=== PATIENT | male | born 1955 | race Caucasian/White ===

== ENCOUNTER 2019-02-11 10:41 | Emergency (ER) | payer OTHER ==
[2019-02-11] MEDS ORDERED: LET GEL TOPICAL 1 EA SYR TP ONE (11:02)
--- NOTE | 2019-02-11 11:02 | EDPHY ---
H & P Stated Complaint: epistaxis Time Seen by Provider: 02/11/19 11:02 HPI/ROS: HPI: This is a 63-year-old male who presents with Chief Complaint: Left nostril nose bleed Location: Left nostril Quality: Nose bleed Duration: 1-2 hours Signs and Symptoms: no fever, no nausea, no vomiting, no photophobia, no noise sensitivity, no neck stiffness, no ear pain, no tinnitus, no nasal congestion, no sinus pressure, no weakness, no radiation, no aura, + nasal dryness, no trauma Timing: Acute, constant Severity: Moderate Context: Patient presents with sudden onset of left nostril bleeding this morning after he blew his nose. He reports that he is unable to stop the bleeding with direct pressure. He does not take any blood thinners. He does have a history of nasal dryness and uses saline nasal wash and humidifier and his house. Mathew patient. Modifying Factors: Direct Pressure-no relief Comment: ROS: A comprehensive 10 system review of systems is otherwise negative aside from elements mentioned in the history of present illness. MEDICAL/SURGICAL/SOCIAL HISTORY: Medical history: Generally healthy. Does not take any regular medications. Surgical history: Denies Social history: Never smoked. Family history noncontributory. CONSTITUTIONAL: Well-developed, well-nourished, mild distress, adult white male , awake and alert HEENT: Atraumatic and normocephalic, PERRL, EOMI. Nares patent; no rhinorrhea; left nostril at the 3 o'clock position shows anterior small pinpoint epistaxis. no nasal mucosal edema. Tympanic membranes clear. Oropharynx clear, no exudate and moist pink mucosa. Airway patent. No lymphadenopathy. No meningismus. Cardiovascular: Normal S1/S2, regular rate, regular rhythm, without murmur rub or gallop. PULMONARY/CHEST: Symmetrical and nontender. Clear to auscultation bilaterally. Good air movement. No accessory muscle usage. ABDOMEN: Soft, nondistended, nontender, no rebound, no guarding, no peritoneal signs, no masses or organomegaly. No CVAT. EXTREMITIES: 2/2 pulses, strength 5/5, no deformities, no clubbing, no cyanosis or edema. NEUROLOGICAL: no focal neuro deficits. GCS 15. SKIN: Warm and dry, no erythema. no rash. Good capillary refill. Source: Patient Exam Limitations: No limitations - Personal History Current Tetanus/Diphtheria Vaccine: Yes Current Tetanus Diphtheria and Acellular Pertussis (TDAP): Yes - Medical/Surgical History Hx Asthma: No Hx Chronic Respiratory Disease: No Hx Diabetes: No Hx Cardiac Disease: No Hx Renal Disease: No Hx Cirrhosis: No Hx Alcoholism: No Hx HIV/AIDS: No Hx Splenectomy or Spleen Trauma: No Other PMH: denies - Social History Smoking Status: Never smoked Constitutional: Initial Vital Signs Temperature (C) 36.5 C 02/11/19 10:45 Heart Rate 63 02/11/19 10:45 Respiratory Rate 16 02/11/19 10:45 Blood Pressure 140/69 H 02/11/19 10:45 O2 Sat (%) 98 02/11/19 10:45 O2 Delivery Mode Room Air Allergies/Adverse Reactions: No Known Allergies Allergy (Unverified 02/11/19 10:45) Home Medications: Medication Instructions Recorded NK [No Known Home Meds] 02/11/19 Medical Decision Making Procedures: Procedure: Epistaxis control. After verbal consent was obtained, the patient was anesthetized with let topical. The left anterior epistaxis was identified. The patient was treated with Afrin and rhino rocket size 4.5 cm with balloon inflated to 5 mL. Following the procedure the patient was re-examined and the bleeding was well controlled. The patient tolerated the procedure well. The procedure was performed by myself. ED Course/Re-evaluation: Vital signs reviewed and show mildly elevated blood pressure. Left anterior epistaxis identified; let topical and Afrin applied. Rhino rocket 4.5 inserted with inflation of balloon to 4 mL with cessation of bleeding Monitored for 1 hr without resolution of bleeding. Patient will be discharged home with ENT follow-up for rhino rocket removal and further evaluation This patient was seen under the supervision of my primary secondary supervising. I evaluated care for this patient independently. Differential Diagnosis: Differential diagnosis includes but is not limited to nasal dryness, trauma, digital manipulation, malignancy, sinusitis, coagulopathy. - Data Points Medications Given: Discontinued Medications Oxymetazoline HCl (Afrin Nasal [place]) 2 sprays EACHNARE EDNOW ONE Stop: 02/11/19 11:16 Last Admin: 02/11/19 12:13 Dose: 2 sprays Tetracaine/Epinephrine/Lidocaine (Let Gel Topical) 1 ea TP ONCE ONE Stop: 02/11/19 11:03 Last Admin: 02/11/19 12:14 Dose: 1 ea Departure - Departure Disposition: Home, Routine, Self-Care Clinical Impression: Left-sided epistaxis, Acute anterior epistaxis Condition: Good Instructions: Nosebleed (ED) Additional Instructions: Do not blow your nose or pick your nose. Leave the packing in place until you see ear nose and throat. Take Tylenol 650 mg every 4 hours and/or Ibuprofen 600 mg every 8 hours with food as needed for pain. Use nasal saline spray and or Vaseline as needed for nasal dryness. Follow-up with ear nose and throat in 2 days to have the packing removed. Referrals: Erick Alexander MD [Medical Doctor] - As per Instructions
[2019-02-11] MEDS ORDERED: OXYMETAZOLINE 30 ML NASAL SPRAY ONE (11:08)
[2019-02-11] MEDS ORDERED: OXYMETAZOLINE 30 ML NASAL SPRAY EACHNARE ONE (11:15)
[2019-02-11 12:15] VITALS: BP 143/77
== END 2019-02-11 12:14 | disposition home or self-care (01) ==
PROC: 2Y41X5Z Packing of Nasal Region using Packing Material (ICD-10-PCS; principal; 2019-02-11)
DX: R04.0 Epistaxis (principal)